=== PATIENT | female | born 1980 | race Caucasian/White ===

== ENCOUNTER 2016-07-06 13:43 | Emergency (ER) | payer MEDICAID ==
--- NOTE | 2016-07-06 14:29 | ED Physician Chart ---
Chief Complaint/HPI - Patient Information Date Seen:: 07/06/16 Time Seen:: 14:00 Chief Complaint:: vaginal discharge History of Present Illness:: onset x 3 days of vaginal discharge; denies vaginal bleeding, melena, hematochezia, hematemesis, Abd. Pain, A/N/V/D/C, fever, chills, C/P, SOB, urinary s/s; LNMP: one week ago; denies ; Hx of BTL; pt stated she had some intermittent, localized, crampy, middle lower Abd/Pelvic pains which resolved upon ER arrival Allergies:: Allergies Allergy/AdvReac Type Severity Reaction Status Date / Time No Known Allergies Allergy Verified 07/06/16 13:57 Vitals:: Vital Signs - 8 hr 07/06/16 13:53 Temp 97.7 F HR 64 RR 16 O2 Sat % 100 Historian:: Patient Review:: Nurse's Note Reviewed Review of Systems - Review of Systems General/Constitutional: No fever, No chills, No weight loss, No weakness, No diaphoresis, No edema, No loss of appetite Skin: No skin lesions, No rash, No bruising Head: No headache, No light-headedness Eyes: No loss of vision, No pain, No diplopia ENT: No earache, No nasal drainage, No sore throat, No tinnitus Neck: No neck pain, No swelling, No thyromegaly, No stiffness, No mass noted Cardio Vascular: No chest pain, No palpitations, No PND, No orthopnea, No edema Pulmonary: No SOB, No cough, No sputum, No wheezing GI: No nausea, No vomiting, No diarrhea, No pain, No melena, No hematochezia, No constipation, No hematemesis G/U: No dysuria, No frequency, No hematuria, Other (Vaginal Discharge) Musculoskeletal: No bone or joint pain, No back pain, No muscle pain Endocrine: No polyuria, No polydipsia Psychiatric: No prior psych history, No depression, No anxiety, No suicidal ideation Hematopoietic: No bruising, No lymphadenopathy Allergic/Immuno: No urticaria, No angioedema Neurological: No syncope, No focal symptoms, No weakness, No paresthesia, No headache, No seizure, No dizziness, No confusion, No vertigo Past Medical History - Past Medical History Obtainable: Yes Past Medical History: No significant medical hx, Thyroid disorder Family History: HTN Social History: Non Smoker, No Alcohol, No Drug Use, Employed Surgical History: , other (BTL) Psychiatricy History: None Medication: Reviewed Family Medical History - Family Member Mother Other Medical History: denies family medical history Physical Exam - Physical Examination General/Constitutional: Awake, Well-developed, well-nourished, Alert, No distress, GCS 15, Non-toxic appearing, Ambulatory Head: Atraumatic Eyes: Lids, conjuctiva normal, PERRL, EOMI Skin: Nl inspection, No rash, No skin lesions, No ecchymosis, Well hydrated, No lymphadenopathy ENMT: External ears, nose nl, Nasal exam nl, Lips, teeth, gums nl Neck: Nontender, Full ROM w/o pain, No JVD, No nuchal rigidity, No bruit, No mass, No stridor Respiratory: Nl effort/Exclusion, Clear to Auscultation, No Wheeze/Rhonchi/Rales Cardio Vascular: RRR, No murmur, gallop, rubs, NL S1 S2 GI: No tenderness/rebounding/guarding, No organomegaly, No hernia, Normal BS's, Nondistended, No mass/bruits, No McBurney tenderness : No CVA tenderness, NL external genitalia, NL adnexa Other comments:: Pelvic Exam: + Vaginal whitish Discharge; no cervical bleeding; Cervix: closed; no bleeding Extremities: No tenderness or effusion, Full ROM, normal strength in all extremities, No edema, Normal digits & nails Neuro/Psych: Alert/oriented, DTR's symmetric, Normal sensory exam, Normal motor strength, Judgement/insight normal, Mood normal, Normal gait, No focal deficits Misc: normal gait, Normal back, No paraspinal tenderness ED Septic Shock - . Is Septic Shock (SBP<90, OR Lactate>4 mmol\L) present?: No - <6hrs of presentation: Vital Signs: Vital Signs - 8 hr 07/06/16 13:53 Temp 97.7 F HR 64 RR 16 O2 Sat % 100 Assessment of Lungs: Lung CTA bilateral, Ventilator, Decreased BS, Rhonchi, No Rhonchi, Rales, No Rales, Wheezing, No Wheezing, Stridor, No Stridor, Other, Documented in PE Assessment of Heart: RRR, Thrill, No thrill, Gallops, No Gallops, S3, S4, Rub, No Rub, Murmur, No Murmur, Other, Documented in PE Capillary refill evaluation: Capillary refill < 2 secs, Capillary refill > 2 secs, Other, Documented in PE Skin Exam: Warm, Dry, Good Turgur, Poor Turgor, Pallor, No Pallor, Diaphoretic ( pt is asymptomatic upon discharge), No Diaphoresis, Mottled, No Mottling, Cyanotic, Edema, No Edema, Erythema, No Erythema, Other, Documented in PE Reassessment (Disposition) - Reassessment Reassessment Condition:: Improved - Diagnosis Diagnosis:: PID; Vaginitis; UTI; Abdominal Pain-Resolved - Aftercare/Follow up Instructions Aftercare/Follow-Up Instructions:: Counseled pt regarding lab results/diagnosis & need follow up, Refer to Discharge Instructions, Counseled pt & family regarding lab results/diagnosis & need follow up Medication Prescribed:: Rx: Keflex 500mg po qid x 10 days; Tylenol 500mg po qid prn fever and/or pain - Patient Disposition Discharge/Transfer:: Home Condition at Disposition:: Stable, Improved (ACIs given for all above Dx; refer to OB-PEDIATRIC ANESTHESIOLOGIST Specialist/Urologist/Material Mover NIRMAL; F/U with PMD in one day or prn; RTER prn if concerned)
[2016-07-06 15:09] LABS: URINE BILIRUBIN NEGATIVE (NEGATIVE); URINE BLOOD TRACE (NEGATIVE); URINE COLOR STRAW; URINE GLUCOSE (UA) NEGATIVE (NEGATIVE); URINE KETONE NEGATIVE (NEGATIVE)
[2016-07-06 15:10] LABS: URINE PH 5.5; URINE PROTEIN NEGATIVE (NEGATIVE); URINE UROBILINOGEN 0.2 E.U./dL (0.2 - 1.0)
[2016-07-06 15:11] LABS: URINE BACTERIA NONE SEEN /hpf (NONE SEEN); URINE EPITHELIAL CELLS NONE SEEN /lpf (FEW); URINE RBC 0-2 /hpf (0-5); URINE WBC 0-2 /hpf (0-5)
[2016-07-06 15:42] LABS: % BASOPHILS 0.7 % (0.0-2.0); % EOSINOPHILS 1.6 % (0.0-5.0); % LYMPHOCYTES 20.8 % (20.0-50.0); % MONOCYTES 7.7 % (2.0-10.0); % NEUTROPHILS 69.2 % (40.0-80.0); HEMOGLOBIN 11.3 gm/dL (11.7-15.5); MEAN CELL VOLUME 79.4 fl (81-100); MEAN CORPUSCULAR HEMOGLOBIN 27.3 pg (27.0-31.0); MEAN CORPUSCULAR HGB CONC 34.4 pg (28.0-36.0); MEAN PLATELET VOLUME 8.9 fl; NEUTROPHILE ABSOLUTE 6.5 Th/cmm (1.8-8.0); PLATELET COUNT 249 Th/cmm (150-400); RED BLOOD COUNT 4.15 Mil/cmm (3.80-5.10); RED CELL DISTRIBUTION WIDTH 13.7 % (11.5-20.0); WHITE BLOOD COUNT 9.5 Th/cmm (4.8-10.8)
[2016-07-06 16:14] LABS: ANION GAP 6.5 (7.0-16.0); BUN - UREA NITROGEN 17 mg/dL (7-25); BUN/CREATININE RATIO 15.5; CALCIUM SERUM 9.5 mg/dL (8.6-10.3); CARBON DIOXIDE 27.3 mEq/L (21.0-31.0); CHLORIDE 108 mEq/L (98-107); CREATININE - SERUM 1.1 mg/dL (0.6-1.2); GLUCOSE 109 mg/dL (70-105); POTASSIUM SERUM 3.8 mEq/L (3.5-5.1); SODIUM SERUM 138 mEq/L (136-145)
--- NOTE | 2016-07-07 09:37 | Diagnostic Imaging Report ---
Ultrasound abdomen HISTORY: Abdominal pain COMPARISON: Pelvic ultrasound the same day Technique: Sonography of the abdomen was performed in multiple planes. FINDINGS: Exam is limited due to bowel gas. The liver demonstrates normal echogenicity with no evidence of focal lesions. The liver measures 17.3 cm. No evidence of gallstones or gallbladder wall thickening. The common bile duct measures 3 mm. Evaluation of the pancreas is limited due to bowel gas. The right kidney measures 10.2 cm. No evidence of focal lesions or hydronephrosis. The left kidney measures 12.2 cm. No evidence of focal lesions or hydronephrosis. The spleen measures 11.1 cm. IMPRESSION: Limited exam due to bowel gas. No evidence of gallstones. No evidence of hydronephrosis. Liver at the upper limits of normal in size.
--- NOTE | 2016-07-07 11:38 | Diagnostic Imaging Report ---
Ultrasound pelvis HISTORY: Lower abdominal and pelvic pain with vaginal discharge. Beta hCG is negative. Last menstrual period is 06/27/2016 COMPARISON: Abdomen ultrasound the same day Technique: Longitudinal and transverse sonographic sector images of the pelvis were obtained transabdominally and transvaginally. FINDINGS: The uterus measures 9.8 x 4.3 x 5.7 cm and demonstrates a heterogeneous echotexture. The endometrium measures 4 mm. There is a hypoechoic area along the lower body of the uterus measuring 1.5 x 1.1 cm. An adjacent cyst is also seen measuring 0.9 x 0.8 cm. The right ovary measures 3.1 x 2.9 cm demonstrating a dominant cyst measuring 2.1 cm. The left ovary measures 3.3 x 2.4 cm demonstrating small follicular cystic changes the largest measuring 9 mm. Vascular flow to ovaries is noted. No evidence of free fluid in the pelvis. IMPRESSION: The endometrium measures 4 mm, please correlate with patient's menstrual cycle 1.5 x 1.1 cm hypoechoic area along the inferior body of the uterus possibly representing a solitary fibroid. Consider short-term follow-up ultrasound surveillance Adjacent subcentimeter cyst likely within the cervix probably representing a nabothian cyst. Right ovarian dominant follicular cyst measuring 2.1 cm. A follow-up ultrasound in 4-6 weeks may be obtained to ensure resolution.
== END 2016-07-06 17:27 | disposition home or self-care (01) ==
LOC: ER 13:43
DX: N76.0 Acute vaginitis (principal); N73.9 Female pelvic inflammatory disease, unspecified; N39.0 Urinary tract infection, site not specified; R10.9 Unspecified abdominal pain; E07.9 Disorder of thyroid, unspecified
CPT/HCPCS: 99285; 96372 ×2; 76700; 76856; 36415; 85025; 87086; 87210; 81001; 81025; 80048; 87491; J1885; J0696